=== PATIENT | female | born 1995 | race Caucasian/White ===

== ENCOUNTER 2025-03-06 07:58 | Outpatient (AMB) | payer OTHER, SELFPAY ==
--- OUTSIDE RECORDS SUMMARY | 2025-03-06 08:01 | XMS_ITS | Clinical Summary ---
Author Organization Patient Business Ser [facility] Address [address] [place] [address] Care Team Providers Care Radon Inspector Name Role Phone Néstor Hawkins MD Primary Care Provider [phone] Medical History Medical History Date Comments Asthma DX:Asthma Family History Medical History Relation Name Comments No Known Problems Father Diabetes Maternal Grandfather Diabetes Maternal Grandmother No Known Problems Mother Relation Name Status Comments Father Alive Maternal Grandfather Maternal Grandmother Mother Alive Social History Tobacco Use Types Packs/Day Years Used Date Smoking Tobacco: Never Smokeless Tobacco: Never Alcohol Use Standard Drinks/Week Comments Yes 0 (1 standard drink = 0.6 oz pur e alcohol) Comments Unknown Sex and Gender Information Value Date Recorded Sex Assigned at Not on file Legal Sex Female 8:17 AM EDT Gender Identity Not on file Sexual Orientation Not on file Obstetrics History Plan of Treatment Health Maintenance Due Date Last Done Comments DTaP,Tdap,and Td Vaccines (1 - Tdap) 2012 Hepatitis B Vaccines (1 of 3 - 19+ 3-dose series) 2012 Cervical Cancer Screening: P ap Smear 2014 HPV Vaccines (1 - 3-dose SCD M series) 2020 Depression Screening 05/15/2024 COVID-19 Vaccine ( - 2023-2 5 season) 2025 Influenza Vaccine (#1) 2025 RSV Immunization Adult Patie nts (1 - 1-dose 75+ series) 2068 HIB Vaccines Aged Out No longer eligi ble based on patient's age to complete this topic Hepatitis A Vaccines Aged Out No long er eligible based on patient's age to complete this topic IPV Vaccines Aged Out No longer eligi ble based on patient's age to complete this topic MMR Vaccines Aged Out No longer eligi ble based on patient's age to complete this topic Meningococcal ACWY Vaccine Aged Out N o longer eligible based on patient's age to complete this topic Meningococcal B Vaccine Aged Out No l onger eligible based on patient's age to complete this topic Pneumococcal Vaccine: Pediat rics (0 to 5 Years) and At-Risk Patients (6 to 49 Years) Aged Out No longer eligible b ased on patient's age to complete this topic RSV Immunization Patients Un smith 20 months Aged Out No longer eligible b ased on patient's age to complete this topic Varicella Vaccines Aged Out No longer eligible based on patient's age to complete this topic Care Teams Radon Inspector Relationship Specialty Start Date End Date Néstor Hawkins MD [address] [facility] [address] [place] [address] PCP - General Internal Medicine 07/23/18
--- OUTSIDE RECORDS SUMMARY | 2025-03-06 08:01 | XMS_ITS | Clinical Summary ---
Demographics Address [address] [place] [address] Mobile Phone Home Phone Email Address Preferred Language Slovak Marital Status Single Congregation Affiliation Unknown Race White Ethnic Group Not or Lati no Author Organization [facility] Address [address] [place] [address] Care Team Providers Care Doctor Of Audiology Name Role Phone Néstor Hawkins MD Primary Care Provider [phone] Allergies No known active allergies Medications Medication Sig Dispensed Refills Start Date End Date Status Multiple Vitamins-Minerals (MULTIVITAMIN ADULT PO) Take by mouth. 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 02/02/2021 Other fatigue 01/25/2021 Surveillance for control, oral contracepti ves 04/19/2019 Encounter for gynecological examination with abnormal finding 12/13/2018 Cervical cancer screening 12/13/2018 Female hirsutism 12/13/2018 Resolved Problems Problem Noted Date Diagnosed Date Resolved Date Class 3 severe obesity due t o excess calories with serious comorbidity and body mass index (BMI) of 45.0 to 49.9 in adult 01/25/2021 Class 3 severe obesity due t o excess calories without serious comorbidity with body mass index (BMI) of 40.0 to 44.9 in adult 06/02/2020 Class 3 severe obesity due t o excess calories without serious comorbidity with body mass index (BMI) of 40.0 to 44.9 in adult 12/13/2018 Encounter for initial prescr iption of contraceptive pills 12/13/2018 12/16/2019 Family History Medical History Relation Name Comments No Sig Med Hx Father Diabetes Maternal Grandfather Diabetes Maternal Grandmother No Sig Med Hx Mother Relation Name Status Comments Father Alive Maternal Grandfather Maternal Grandmother Mother Alive Social History Tobacco Use Types Packs/Day Years Used Date Smoking Tobacco: Never Smokeless Tobacco: Never Tobacco Cessation:Counseling Given: No Alcohol Use Standard Drinks/Week Comments Yes 0 (1 standard drink = 0.6 oz pur e alcohol) Social Sex and Gender Information Value Date Recorded Sex Assigned at Female 07/23/2018 12:31 PM EDT Gender Identity Female 12/13/2018 1:38 PM EDT Sexual Orientation Straight 12/13/2018 1: 38 PM EDT Job Start Date Occupation Industry Not on file Not on file Not on file Last Filed Vital Signs Vital Sign Reading Time Taken Comments Blood Pressure 132/82 02/02/2021 3:43 PM EDT Pulse - - Temperature 36.2 C (97.1 F) 02/02/2021 3:43 PM EDT Respiratory Rate - - Oxygen Saturation - - Inhaled Oxygen Concentration - - Weight 128.7 kg (283 lb 12.8 oz) 02/02/2021 3:43 PM EDT Height 160 cm (5' 3 ) 02/02/2021 3:43 PM EDT Body Mass Index 50.27 02/02/2021 3:43 PM EDT Plan of Treatment Health Maintenance Due Date Last Done Comments Hepatitis B Vaccines (1 of 3 - 3-dose series) 1993 Hepatitis C Screening 1993 COVID-19 Vaccine (#1) 03/16/1994 DTap / Tdap / Td (1 - Tdap) 2012 Cervical Cancer Screening (Pap Smear) 2014 Depression Screening 01/25/2022 01/25/2021, 12/16/2019, 12/13/2018 Preventative Health Evaluation 01/25/2022 01/25/2021, 12/16/2019, 12/13/2018 BMI Counseling 02/02/2022 02/02/2021, 01/13, 06/02/2020, Additional history exists Influenza Vaccine (#1) 2025 Pneumococcal Vaccine Aged Out No long er eligible based on patient's age to complete this topic RSV Ped < 20 months Aged Out No longe r eligible based on patient's age to complete this topic Care Teams Doctor Of Audiology Relationship Specialty Start Date End Date Néstor Hawkins MD [address] Nést[place] [address] PCP - General Internal Medicine 07/23/18
--- NOTE | 2025-03-06 08:03 | A.OFFPC_ITS ---
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 Transferring care from [facility]. Medical records have been requested and have not received. Machine Maintenance Technician Required: No Paper And Pulp Mill Worker: Not Required per policy Accompanied by: Self / Same As Patient Allergies No Known Allergies Allergy (Verified 03/06/25 08:13) Medication List - Last Reconciled 03/06/25 by Germaine Corbin PA-C inositol mg PO levothyroxine 125 mcg PO DAILY semaglutide (weight loss) (Wegovy) 2.4 mg (0.75 mL) subcut QWEEK zinc sulfate (Orazinc) 25 mg PO DAILY Tobacco use date assessed: 03/06/25 Dental Screening Dental Screen Date: 03/06/25 Did you have a dental visit in the last 12 months?: No Did you have a dental problem in the last 6 months where you did not have access to dental care?: No Was dental information given to patient?: No 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 Presenting for management of hypothyroidism, obesity, and suspected polycystic ovary syndrome (PCOS). The patient is on levothyroxine, which has stabilized her thyroid levels and helped regulate her menstrual cycle. She has been using compounded semaglutide for weight loss, resulting in a reduction from 318 lbs to 299 lbs. She practices yoga and walking regularly. She has seen a cooky packer in the past and has not had benefit from this. She has seen benefit from using the compound semaglutide for weight loss and she would like to continue on this medication. She is concerned for PCOS symptoms include irregular menstrual cycles and hirsutism and has not been formally diagnosed. She has a history of hypercholesterolemia and plan to repeat blood work. Previous blood test did reveal elevated LFTs and plan to repeat these. The patient reports low energy and fatigue, with a sleep study planned to assess for sleep apnea. Previously she was scheduled for a sleep study which was not completed. Intermittent pain, primarily in the right knee, worsens with activities like stair climbing, possibly related to her weight. 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 1. Little interest or pleasure in doing things: several days 2. Feeling down, depressed, or hopeless: not at all 3. Trouble falling or staying asleep, or sleeping too much: several days 4. Feeling tired or having little energy: more than half the days 5. Poor appetite or overeating: several days 6. Feeling bad about yourself - or that you are a failure or have let yourself or your family down: not at all 7. Trouble concentrating on things, such as reading the newspaper or watching television: several days 8. Moving or speaking so slowly that other people could have noticed. Or the opposite - being so fidgety or restless that you have been moving around a lot more than usual: not at all 9. Thoughts that you would be better off or of hurting yourself in some way: not at all Total score: 6 Depression Screening Interpretation: Positive Depression Screening Follow-up: Existing condition and Declines treatment Depression Screening Done: Yes 11839 - PHQ-9 Billing: Yes Source: Developed by Drs. Jesus Canela, Michelle Guerra, Maximo Levin and colleagues, with an educational ca from [employer]. Thrive Questionnaire Date Thrive assessed: 03/04/25 I am a: Patient What is your living situation today?: I have a steady place to live Within the past 12 months, did the food you bought not last and you didn't have the money to get more?: Never true Within the past 12 months, did you worry whether your food would run out before you got money to buy more?: Never true Do you have trouble paying for medicines?: No Do you have trouble getting transportation to medical appointments?: No Do you have trouble paying your heating and electricity bill?: No Do you have trouble taking care of your child, family member or friend?: No Do you have trouble with day-to-day activities such as bathing, preparing meals, shopping, managing finances, etc.?: No Are you currently unemployed and looking for a job?: No Are you interested in more education?: Yes Please select the resources that you would like help with: None Currently or been in a relationship where the following occur: No concerns reported THRIVE Score: 0 AUDIT C Alcohol Use Questionnaire (AUDIT-C) 1. How often do you have a drink containing alcohol?: Monthly or less 2. How many drinks containing alcohol do you have on a typical day when you are drinking?: 1 or 2 3. How often do you have six or more drinks on one occasion?: Never Total Score: 1 DAVIE-7 AMB Questionnaire DAVIE-7 Date DAVIE - 7 assessed: 03/06/25 Feeling nervous, anxious, or on edge: 1 = Several days Not being able to stop or control worryin = Several days Worrying too much about different things: 1 = Several days Trouble relaxin = Not at all Being so restless that it is hard to sit still: 1 = Several days Becoming easily annoyed or irritable: 2 = More than half the days Feeling afraid as if something awful might happen: 0 = Not at all Total DAVIE-7 score (0-4 normal; 5-9 mild; 10-14 moderate; 15-21 severe): 6 Source: Developed by Drs. Jesus Canela, Michelle Guerra, Maximo Levin and colleagues, with an educational ca from [employer]. DAVIE-7 Assessment Billing DAVIE-7 Assessment Tool: DAVIE-7 Assessment 70309 Review of Systems Const Denies body aches, Denies chills, Denies fever(s), Denies headache(s) and Denies poor appetite Eyes Reports no additional complaints ENT Denies dysphagia, Denies dizziness, Denies headache(s) and Denies odynophagia Card Denies chest pain, Denies syncope, Denies edema, Denies irregular heart rhythm, Denies lightheadedness and Denies dyspnea Resp Denies cough and Denies dyspnea GI Denies abdominal pain, Denies constipation, Denies dysphagia, Denies diarrhea, Denies nausea, Denies odynophagia and Denies vomiting Reports no additional complaints Musc Reports as per HPI and Denies abnormal gait Skin/Breast Reports system reviewed and no additional complaints, except as documented Neuro Denies abnormal gait, Denies dizziness, Denies syncope and Denies headache(s) Psych Reports no additional complaints Physical exam (Primary Care) Vital Signs: Last Vital Signs Temp 96.6 F L 03/06/25 08:05 Pulse 85 03/06/25 08:05 BP 120/70 03/06/25 08:05 Pulse Ox 99 03/06/25 08:05 Oxygen Delivery Method Room Air 03/06/25 08:05 BMI result Body Mass Index 52.3 Tobacco/Smoking Status: Tobacco use Status Tobacco use date assessed 03/06/25 03/06/25 08:11 Patient Tobacco Use Status Never used Tobacco 03/06/25 08:11 e-Cigarette/Vaping Use Never Used 03/06/25 08:11 PHQ-9: PHQ-9 Score PHQ-9: Total score 6 03/06/25 08:33 Depression Screening Interpretation: Positive Depression Screening Follow-up: Existing condition and Declines treatment Thrive Assessment: Date of Thrive Assessment Date Thrive assessed 03/04/25 03/06/25 08:11 Currently or been in a relationship where the following occur: No concerns reported Const General: cooperative, healthy appearing, comfortable and no acute distress Orientation/consciousness: patient oriented x3 HENNM Head: Yes normocephalic Ears: hearing grossly normal bilaterally General nose exam: Normal external nose present Eyes General: appearance normal, both eyes and all related structures Conjunctivae: conjunctivae normal Neck Neck: Yes full ROM and Yes no lymphadenopathy Resp Effort & Inspection: normal respiratory effort Auscultation: clear to auscultation bilaterally, no crackles, no rales, no rhonchi and no wheezes Cardio Rate: regular rate Rhythm: regular rhythm Skin General skin exam: no rashes or lesions noted Neuro General: patient oriented x3 Gait exam (Neuro): Normal gait present Extrem General: Yes normal to inspection, Yes full ROM and No edema Psych Affect: normal affect Attitude: cooperative Insight: Good insight present (Psych) Judgement: Good judgement present (Psych) Coding Level of Care Code New Pt Level 4 (27878) Diagnoses Morbid obesity with BMI of 50.0-59.9, adult E66.01; Z68.43 Hyperlipidemia E78.5 Hypothyroidism E03.9 Hypersomnolence G47.10 Irregular menses N92.6 Hirsutism L68.0 Depression F32.A Anxiety F41.9 Bilateral knee pain M25.561; M25.562 Additional Codes DAVIE-7 Assessment Billing - DAVIE-7 Assessment Tool: DAVIE-7 Assessment 42290 ([id number]) PHQ-9 - 57486 - PHQ-9 Billing: Yes ([id number]) Assessment & Plan Assessment & Plan (1) Morbid obesity with BMI of 50.0-59.9, adult: Code(s): E66.01 - Morbid (severe) obesity due to excess calories; Z68.43 - Body mass in dex [BMI] 50.0-59.9, adult Category: Medical Plan: Healthy diet and regular exercise is encouraged. She is currently using compounded semaglutide through her spa in his looking to have a prescription for this. She has seen a cooky packer in the past which did not find helpful and has successfully lost 20 lb while using the GLP 1. She has been a keto diet in the past and is currently working in focusing on high-protein and less carbs. She does have a history of binge eating which has complicated her weight loss journey and sees good benefit from semaglutide for this. She does engage in exercise including yoga 3 times per week and 2 mi walks 5 times per week. (2) Hyperlipidemia: Code(s): E78.5 - Hyperlipidemia, unspecified Category: Medical Plan: Avoid foods that are high in cholesterol such as red meat, fried foods, eggs and baked goods. Triglyceride goal of less than 150 and LDL goal of less than 130. Ordered for repeat blood work (3) Hypothyroidism: Code(s): E03.9 - Hypothyroidism, unspecified Category: Medical Plan: She is currently on levothyroxine 125 mcg and plan for repeat blood work (4) Hypersomnolence: Code(s): G47.10 - Hypersomnia, unspecified Category: Medical Plan: Ordered for home sleep study for further evaluation. (5) Irregular menses: Code(s): N92.6 - Irregular menstruation, unspecified Category: Medical Plan: For irregular menses patient has concern for possible PCOS. I did ordered for updated blood work referral was placed to gynecology today. (6) Hirsutism: Code(s): L68.0 - Hirsutism Category: Medical Plan: See above (7) Depression: Comment: counseling weekly via [facility] Nelia Silva Code(s): F32.A - Depression, unspecified Category: Medical Plan: She is currently seeing a therapist through zoom and agrees to reach out if she needs anything additional (8) Anxiety: Code(s): F41.9 - Anxiety disorder, unspecified Category: Medical Plan: See above (9) Bilateral knee pain: Code(s): M25.561 - Pain in right knee; M25.562 - Pain in left knee Category: Medical Plan: The patient experiences intermittent knee pain, primarily in the right knee, exacerbated by activities such as climbing stairs. Recommendations include gentle stretching and supportive footwear. Plan This note was constructed using voice recognition software. While every effort has been made to ensure accuracy and psych nurse, still areas may have been included sometimes these areas may affect the content or meeting of the given symptoms. Total time spent caring for the patient today was 30 minutes. This includes time spent before the visit reviewing the chart, time spent during the visit, and time spent after the visit and documentation. Patient was informed and verbally consented to the use of an ambient scribe for clinic note documentation during this visit. Orders: Orders Vitamin B12 and Folate Today Z13.21 - Encounter for screening for nutritional disorder Vitamin D 25-OH Total Today Z13.21 - Encounter for screening for nutritional disorder Complete Blood Count Auto Diff Today E66.01 - Morbid (severe) obesity due to excess calories, Z13.0 - Encounter for screening for diseases of the blood and blood-forming organs and certain disorders involving the immune mechanism, Z68.43 - Body mass index [BMI] 50.0-59.9, adult Comprehensive Met. Panel Today E66.01 - Morbid (severe) obesity due to excess calories, Z00.00 - Encounter for general adult medical examination without abnormal findings, Z68.43 - Body mass index [BMI] 50.0-59.9, adult Estrogen Today L68.0 - Hirsutism Testosterone, Free/Total Today L68.0 - Hirsutism Lipid Panel Today E78.00 - Pure hypercholesterolemia, unspecified TSH reflex Free T4 Today E03.9 - Hypothyroidism, unspecified Free T4 (Free Thyroxine) Today E03.9 - Hypothyroidism, unspecified Hemoglobin A1c Today Z13.1 - Encounter for screening for diabetes mellitus RT home sleep study Today G47.10 - Hypersomnia, unspecified Follicle Stimulating Hormone Today L68.0 - Hirsutism Cortisol, Free Today G47.10 - Hypersomnia, unspecified Referrals OFFAL SEPARATOR Referral L68.0 - Hirsutism, N92.6 - Irregular menstruation, unspecified, Z12.4 - Encounter for screening for malignant neoplasm of cervix Dermatology Referral L91.8 - Other hypertrophic disorders of the skin Medications: New semaglutide (weight loss) (Wegovy) 2.4 mg (0.75 mL) subcut QWEEK 3 mL 0RF E03.9 - Hypothyroidism, unspecified, E66.01 - Morbid (severe) obesity due to excess calories, E78.5 - Hyperlipidemia, unspecified, R79.89 - Other specified abnormal findings of blood chemistry, Z68.43 - Body mass index [BMI] 50.0-59.9, adult levothyroxine 125 mcg PO DAILY 90 tabs 0RF
[2025-03-06 08:05] VITALS: BP 120/70; PULSE 85; TEMP 35.9; O2SAT 99; BMI 52.3
== END 2025-03-06 09:01 | disposition home or self-care (01) ==
LOC: HO.HMCH 07:59
DX: E66.01 Morbid (severe) obesity due to excess calories (principal); Z68.43 Body mass index [BMI] 50.0-59.9, adult; E78.5 Hyperlipidemia, unspecified; E03.9 Hypothyroidism, unspecified; G47.10 Hypersomnia, unspecified; N92.6 Irregular menstruation, unspecified; L68.0 Hirsutism; F32.A Depression, unspecified; F41.9 Anxiety disorder, unspecified; M25.561 Pain in right knee; M25.562 Pain in left knee

== ENCOUNTER 2025-03-06 07:58 | Outpatient (REF) | payer OTHER, SELFPAY ==
[2025-03-06 09:29] LABS: MANUAL DIFF FLAG NO
[2025-03-06 09:47] LABS: Hematocrit 40.4 % (37.0-47.0); Hemoglobin 13.6 g/dl (12.0-16.0); Imm Gran Abs Auto 0.02 X10*3/uL (0.00-0.03); Imm Gran Pct Auto 0.3 % (0.0-0.4); Lymphocytes Absolute Auto 2.2 X10*3/uL (1.2-4.9); Mean Corpuscular HGB Conc 33.7 g/dl (31.0-35.0); Mean Corpuscular Hemoglobin 29.1 pg (27.0-33.0); Mean Corpuscular Volume 86.3 fL (80.0-98.0); NRBC Abs Auto 0.000 X10*3/uL (0.0-0.012); NRBC Pct Auto 0.0 /100WBC (0.0-0.2); Platelet Count 284 X10*3/uL (160-400); Red Blood Count 4.68 X10*6/uL (4.20-5.50); White Blood Count 6.8 X10*3/uL (4.8-10.8)
[2025-03-06 10:20] LABS: Alanine Aminotransferase 26 U/L (0-31); Albumin Level 4.4 g/dL (3.5-5.0); Alkaline Phosphatase 80 U/L (39-117); Anion Gap 10 (12-20); Aspartate Amino Transferase 23 U/L (5-31); Blood Urea Nitrogen 15 mg/dL (9-16); Calcium 9.3 mg/dL (8.4-10.2); Carbon Dioxide 26 mmol/L (22-29); Chloride 110 mmol/L (96-108); Cholesterol 153 mg/dL (<200); Estimated Glomerular Filt Rate > 60; HDL Cholesterol 48 mg/dL (>40); Potassium 4.3 mmol/L (3.3-5.1); Sodium 142 mmol/L (135-145); Total Protein 7.7 g/dL (6.5-8.0); Triglycerides 79 mg/dL (<150)
[2025-03-06 10:35] LABS: Free T4 (Free Thyroxine) 0.90 ng/dL (0.71-1.85)
[2025-03-06 10:39] LABS: Folate 7.2 ng/mL (> or = 4.0); Vitamin B12 519 pg/mL (200-900)
[2025-03-07 05:38] LABS: Follicle Stimulating Hormone 6.2 mIU/mL
[2025-03-10 18:09] LABS: Testosterone, Free 7.7 pg/mL (0.1-6.4)
[2025-03-17 04:19] LABS: Cortisol, Free 0.20 mcg/dL
== END 2025-03-06 07:59 | disposition home or self-care (01) ==
LOC: HO.LAB 07:58
DX: Z00.00 Encounter for general adult medical examination without abnormal findings (principal); E03.9 Hypothyroidism, unspecified; E78.00 Pure hypercholesterolemia, unspecified; E66.01 Morbid (severe) obesity due to excess calories; G47.10 Hypersomnia, unspecified; N92.6 Irregular menstruation, unspecified; L68.0 Hirsutism; F32.A Depression, unspecified; F41.9 Anxiety disorder, unspecified; M25.561 Pain in right knee; M25.562 Pain in left knee; R79.89 Other specified abnormal findings of blood chemistry; Z13.0 Encounter for screening for diseases of the blood and blood-forming organs and certain disorders involving the immune mechanism; Z68.43 Body mass index [BMI] 50.0-59.9, adult
CPT/HCPCS: 36415; 80053; 80061; 82306; 82530; 82607; 82672; 82746; 83001; 83036; 84402; 84403; 84439; 84443; 85025; 96127; 99202

== ENCOUNTER → 2025-04-29 08:24 | Outpatient (REF) | payer OTHER, SELFPAY ==
--- OUTSIDE RECORDS SUMMARY | 2025-01-28 09:00 | XMS_ITS ---
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 Physical Problems Problem Type SNOMED Code ICD Code Onset Dates Problem Status W/U Status Risk Notes Problem Hypothyroidism (69164216) Hypothyroidism, unspecified (E03.9) Active confirmed Problem Body mass index 40+ - morbidly obese (471905705) Body mass index [BMI] 50.0-59.9, adult (Z68.43) Active confirmed Encounters Encounter Location Date Provider Diagnosis [address] [address] 01/28/2025 LINDA ALEJANDRE Encounter for gynecological examination (general) (routine) without abnormal findings Z01.419 and Encounter for screening for infections with a predominantly sexual mode of transmission Z11.3 Assessments Encounter Date Diagnosis (ICD Code) Assessment Notes Treatment Notes Treatment Clinical Notes Section Notes 01/28/2025 Encounter for gynecological examination (general) (routine) without abnormal findings (ICD-10 - Z01.419) During the visit, the following areas of concern were addressed: Discussed cervical cancer screening with either cytology alone every 3 years or high risk HPV co-testing every 5 years as per ASCCP guidelines. Advised continued annual pelvic exams. Patient encouraged to increase her level of exercise. SBE technique encouraged/tau ght. 01/28/2025 Encounter for screening for infections with a predominantly sexual mode of transmission (ICD-10 - Z11.3) Plan Of Treatment Treatment Notes Assessment Notes Encounter for gynecological examination (general) (routine) without abnormal findings During the visit, the following areas of concern were addressed: Discussed cervical cancer screening with either cytology alone every 3 years or high risk HPV co-testing every 5 years as per ASCCP guidelines. Advised continued annual pelvic exams. Patient encouraged to increase her level of exercise. SBE technique encouraged/taught. 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 She is new to this practice, having received previous talent manager care . She has been in state of health since her last exam. She has the following concerns: . She has received the Covid-19 vaccine. Relationship status: for years. She is sexually active. Sexual partner(s): . She does wish to have STI testing. Menses: Contraception: The patient has had an abnormal pap smear within the last 5 years. Her most recent pap smear was . The patient does exercise. She exercises x days/week by . 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 B ladder symptoms d enies. V aginal discharge, unusual d enies. V aginal itch or odor d enies. w eight or appetite changes d enies. C hest pains, SOB d enies. d epression d enies.? B reast: Denies B reast lump. D enies N ipple discharge.? H ematology: Denies S wollen glands. S kin: Patient complaining of c hanging moles. P sychiatric: Denies A nxiety. * Medical History: H ypothyroidism, unspecified, Body mass index [BMI] 50.0-59.9, adult. Objective: * Vitals: * Examination: G eneral Examination: GENERAL APPEARANCE: i n no acute distress,well developed, well nourished,full roll inspector present in room. HEAD: n ormocephalic, atraumatic. NECK/THYROID: n jeremiah supple, full range of motion,thyroid normal. LYMPH NODES: n o axillary or supraclavicular adenopathy.? SKIN: n ormal,good turgor,no rashes,no suspicious lesions.? BREASTS: n ormal,no dimpling,no discharge,no drainage,no masses palpable bilaterally,nontender. ABDOMEN: s oft, non-tender, non distended without masses or hepatosplenomegay. BACK: n o costovertebral angle tenderness. FEMALE GENITOURINARY: V ulva without lesions or masses, vagina pink without abnormal discharge, lesions or masses, cervix appears normal and is not tender to palpation, uterus is normal size, mobile, nontender and anteverted, ovaries are not palpable. NEUROLOGIC: a lert and oriented,gait normal. PSYCH: a lert, oriented,cognitive function intact,cooperative with exam,good eye contact,mood/affect full range,speech clear. Assessment: * Assessment: 1. E ncounter for gynecological examination (general) (routine) without abnormal findings - Z01.419 (Primary) 2 . E ncounter for screening for infections with a predominantly sexual mode of transmission - Z11.3 Plan: * Treatment: * Follow Up: 1 Year (Reason: Yearly Mold Yard Crane Operator Exam) * Images: Billing Information: * Visit Code: 21154 Preventive Care New Pt. Age 18-39. 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 She is new to this practice, having received previous talent manager care . She has been in state of health since her last exam. She has the following concerns: . She has received the Covid-19 vaccine. Relationship status: for years. She is sexually active. Sexual partner(s): . She does wish to have STI testing. Menses: Contraception: The patient has had an abnormal pap smear within the last 5 years. Her most recent pap smear was . The patient does exercise. She exercises x days/week by . Examination Category Sub-Category Detail Notes Category Not es General Examination GENERAL APPEARANCE: in no ac tejon distress, well developed, well nourished, full roll inspector present in room HEAD: normocephalic, atrau matic NECK/THYROID: neck supple, full ra nge of motion, thyroid normal ABDOMEN: soft, non-tender, no n distended without masses or hepatosplenomegay NEUROLOGIC: alert and oriented, gait normal SKIN: normal, good turgor, no rashes, no suspicious lesions BACK: no costovertebral an gle tenderness BREASTS: normal, no dimpling, no discharge, no drainage, no masses palpable bilaterally, nontender LYMPH NODES: no axillary or supra clavicular adenopathy PSYCH: alert, oriented, cog nitive function intact, cooperative with exam, good eye contact, mood/affect full range, speech clear FEMALE GENITOURINARY: Vulva without lesi ons or masses, vagina pink without abnormal discharge, lesions or masses, cervix appears normal and is not tender to palpation, uterus is normal size, mobile, nontender and anteverted, ovaries are not palpable
--- OUTSIDE RECORDS SUMMARY | 2025-04-29 08:46 | XMS_ITS | Patient Health Record ---
Author Organization [facility] Address [address] [place] [address] Care Team Providers Care Automotive General Manager Name Role Phone LINDA ALEJANDRE Unavailable [phone] Reason For Referral No Information Problems Problem Type SNOMED Code ICD Code Onset Dates Problem Status W/U Status Risk Notes Problem Hypothyroidism (37812587) Hypothyroidism, unspecified (E03.9) Active confirmed Problem Body mass index 40+ - morbidly obese (128307379) Body mass index [BMI] 50.0-59.9, adult (Z68.43) Active confirmed Plan Of Treatment No Information Insurance Providers Payer Name Payer Address Payer Phone Subscriber Number Group Number Insured Name Patient Relationship to Insured Coverage Start Date Coverage End Date [facility] [address] [place] [address] [phone] JAMES ALDRIDGE Self - patient is the insured Medical (General) History Medical History History ICD Code Hypothyroidism, unspecified E03.9 Body mass index [BMI] 50.0-59.9, adult Z 68.43
--- OUTSIDE RECORDS SUMMARY | 2025-04-29 08:47 | XMS_ITS | Clinical Summary ---
[facility] Organization [facility] Address [address] [place] [address] Care Team Providers Care Promotions Firm Accounts Manager Name Role Phone Néstor Hawkins MD Primary Care Provider [phone] Allergies No known active allergies Medications Medication [...] age to complete this topic Care Teams Promotions Firm Accounts Manager Relationship Specialty Start Date End Date Néstor Hawkins MD [address] Né[place] [address] PCP - General Internal Medicine 07/23/18
--- OUTSIDE RECORDS SUMMARY | 2025-04-29 08:47 | XMS_ITS | Clinical Summary ---
Author Organization Patient Business Ser [facility] Address [address] [place] [address] Care Team Providers Care Director Of Institutional Sales Name Role Phone Néstor Hawkins MD Primary Care Provider [phone] Medical History Medical History Date Comments Asthma [...] on file Sexual Orientation Not on file Plan of Treatment Health Maintenance Due Date Last Done Comments DTaP,Tdap,and Td Vaccines (1 - Tdap) 2012 Hepatitis B Vaccines (1 of 3 - 19+ 3-dose series) 2012 Cervical Cancer Screening: P ap Smear 2014 HPV Vaccines (1 - 3-dose SCD M series) 2020 Depression Screening 05/15/2024 COVID-19 Vaccine ( - 2024-2 6 season) 2025 Influenza Vaccine (#1) 2025 RSV [...] age to complete this topic Care Teams Director Of Institutional Sales Relationship Specialty Start Date End Date Néstor Hawkins MD [address] [facility] [address] [place] [address] PCP - General Internal Medicine 07/23/18
== END ==
LOC: HO.SL 08:24
DX: G47.10 Hypersomnia, unspecified (principal)
CPT/HCPCS: 95806

== ENCOUNTER → 2025-04-30 08:36 | Outpatient (BNV) | payer OTHER, SELFPAY | PROVIDERS: Visit Provider Psychiatry & Neurology Neurology | DX: G47.10 Hypersomnia, unspecified (principal) | CPT/HCPCS: 95806 ==